=== PATIENT | female | born 1965 | race Caucasian/White ===

== ENCOUNTER → 2017-12-26 | Outpatient (CLI) | payer OTHER | LOC: M RAD 09:20 | DX: N26.1 Atrophy of kidney (terminal) (principal) | CPT/HCPCS: 78707 ==

== ENCOUNTER 2018-01-02 07:55 | Day surgery (SDC) | payer OTHER ==
[~2018-01-02 07:55] MED LIST: LIDOCAINE 2% INJ 100 MG/5 ML SDV (FOR ANES.) As Ordered; PROPOFOL 200 MG/20 ML VIAL As Ordered
== END 2018-01-02 11:28 | disposition home or self-care (01) ==
LOC: M OPP 07:55
DX: R19.7 Diarrhea, unspecified (principal); K57.30 Diverticulosis of large intestine without perforation or abscess without bleeding; K64.8 Other hemorrhoids; K21.0 Gastro-esophageal reflux disease with esophagitis; K22.8 Other specified diseases of esophagus; K25.9 Gastric ulcer, unspecified as acute or chronic, without hemorrhage or perforation; K29.70 Gastritis, unspecified, without bleeding; I10 Essential (primary) hypertension; R12 Heartburn; M19.90 Unspecified osteoarthritis, unspecified site; F41.9 Anxiety disorder, unspecified; Z80.1 Family history of malignant neoplasm of trachea, bronchus and lung; Z80.8 Family history of malignant neoplasm of other organs or systems; Z79.82 Long term (current) use of aspirin; Z79.899 Other long term (current) drug therapy; Z88.2 Allergy status to sulfonamides
CPT/HCPCS: 45380

== ENCOUNTER → 2025-01-20 | Outpatient (CLI) | payer MEDICAID ==
[~2025-01-20] MED LIST changes: +ASPI81TA86 PO; +BUPR-597 PO; +BUPR15TASR PO; +ESTRODIOL TOP; +ISOVUE-370 76% 100ML VIAL ONE; -LIDOCAINE 2% INJ 100 MG/5 ML SDV (FOR ANES.) As Ordered; +LISI10TA22 PO; +METO1TAB32 PO; +PANT40TA29 PO; -PROPOFOL 200 MG/20 ML VIAL As Ordered; +RANI150T PO; +TRIA37.5 PO
== END ==
LOC: M PLAIMG 09:21
PROVIDERS: ATTEND Physician Assistant Medical
DX: R10.13 Epigastric pain (principal); R10.12 Left upper quadrant pain; R19.8 Other specified symptoms and signs involving the digestive system and abdomen
CPT/HCPCS: 74177; Q9967